=== PATIENT | female | born 1990 | race Caucasian/White ===

== ENCOUNTER 2024-04-14 14:44 | Emergency (ER) | payer OTHER ==
[2024-04-14 14:56] VITALS: RESP 18
[2024-04-14] MEDS: DIPH,PERTUS(ACELL)TETVAC-LF 0.5 ML VIAL IM ONE (16:27)
--- NOTE | 2024-04-14 17:11 | ED ---
Wound/Laceration HPI - General Chief Complaint: Wound/Laceration Stated Complaint: finger lac Time Seen by Provider: 04/14/24 15:45 Source: patient, RN notes reviewed Mode of arrival: ambulatory Limitations: no limitations - History of Present Illness Initial Comments: 33-year-old female at 10 weeks gestation presenting for left finger laceration 3 hours ago. States she was cutting frozen butter with a kitchen knife when she accidentally sliced the tip of her left finger. Denies blood thinners. Last tetanus greater than 5 years. No pain with range of motion. No other injuries. - Related Data Previous Rx's Medication Instructions Recorded Dicyclomine [Bentyl] 20 mg PO QID #24 tablet 10/02/14 Allergies Allergy/AdvReac Type Severity Reaction Status Date / Time No Known Allergies Allergy Verified 04/14/24 14:56 Review of Systems ROS Statement: Those systems with pertinent positive or pertinent negative responses have been documented in the HPI. ROS Other: All systems not noted in ROS Statement are negative. Past Medical History Past Medical History: No Reported History History of Any Multi-Drug Resistant Organisms: None Reported Past Surgical History: Adenoidectomy, Tonsillectomy Past Psychological History: No Psychological Hx Reported Smoking Status: Never smoker Past Alcohol Use History: Occasional Past Drug Use History: None Reported General Exam Limitations: no limitations General appearance: alert, in no apparent distress Head exam: Present: atraumatic, normocephalic, normal inspection Left Forearm Wrist exam: Present: normal inspection, full ROM. Absent: tenderness, swelling Hand Wrist exam: Present: full ROM, laceration (There is a 2 cm avulsion present on distal aspect of left second digit. No active bleeding. No nail involvement. No purulence or drainage). Absent: tenderness, swelling Vascular: Present: normal capillary refill, radial pulse. Absent: vascular compromise Neurological exam: Present: alert, oriented X3 Psychiatric exam: Present: normal affect, normal mood Skin exam: Present: warm, dry, intact, normal color. Absent: rash Course Vital Signs 04/14/24 04/14/24 14:52 17:17 Temperature 97.9 F 98.1 F Pulse Rate 78 76 Respiratory 18 18 Rate Blood Pressure 117/77 120/80 O2 Sat by Pulse 100 100 Oximetry Medical Decision Making - Medical Decision Making Was pt. sent in by a medical professional or institution (Dr., PA, WELLNESS PROGRAM MANAGER, urgent care, hospital, or penitentiary...) When possible be specific @ -No Did you speak to anyone other than the patient for history (EMS, parent, family, police, friend...)? What history was obtained from this source @ -No Did you review nursing and triage notes (agree or disagree)? Why? @ -I reviewed and agree with nursing and triage notes Were old charts reviewed (outside hosp., previous admission, EMS record, old EKG, old radiological studies, urgent care reports/EKG's, penitentiary records)? Report findings @ -No old charts were reviewed Differential Diagnosis (chest pain, altered mental status, abdominal pain women, abdominal pain men, vaginal bleeding, weakness, fever, dyspnea, syncope, headache, dizziness, GI bleed, back pain, seizure, CVA, palpatations, mental health, musculoskeletal)? @ -Differential Musculoskeletal Laceration, avulsion, muscular strain, contusion, ligament sprain, fracture, arthritis, septic arthritis, bursitis, cellulitis, muscle spasm, nerve compression, DVT, arterial occlusion, herpes zoster, electrolyte abnormality, tumor.... This is not meant to be in all inclusive list EKG interpreted by me (3pts min.). @ -None X-rays interpreted by me (1pt min.). @ -None done CT interpreted by me (1pt min.). @ -None done U/S interpreted by me (1pt. min.). @ -None done What testing was considered but not performed or refused? (CT, X-rays, U/S, labs)? Why? @ -None What meds were considered but not given or refused? Why? @ -None Did you discuss the management of the patient with other professionals (professionals i.e. ASHELY Mccarty, WELLNESS PROGRAM MANAGER, lab, RT, psych nurse, social media assistant, eyelet row marker, teacher, parachute/combatant diver officer, social work case manager)? Give summary @ -No Was smoking cessation discussed for >3mins.? @ -No Was critical care preformed (if so, how long)? @ -No Were there social determinants of health that impacted care today? How? (Ho melessness, low income, unemployed, alcoholism, drug addiction, transportation, low edu. Level, literacy, decrease access to med. care, intermediate, rehab)? @ -No Was there de-escalation of care discussed even if they declined (Discuss DNR or withdrawal of care, Hospice)? DNR status @ -No What co-morbidities impacted this encounter? (DM, HTN, Smoking, COPD, CAD, Cancer, CVA, ARF, Chemo, Hep., AIDS, mental health diagnosis, sleep apnea, morbid obesity)? @ -None Was patient admitted / discharged? Hospital course, mention meds given and route, prescriptions, significant lab abnormalities, going to OR and other pertinent info. @ -Discharge. This is a 33-year-old female presenting with left finger laceration 3 hours ago. Patient accidentally sliced the distal aspect of her left second digit while slicing frozen butter with a kitchen knife. Denies blood thinners. On examination, there is a 2 cm avulsion present on distal aspect of left second digit. No active bleeding. Neurovascularly intact. Full range of motion. Sutures not indicated at this time as skin is avulsed. Tetanus was updated. Wound was thoroughly irrigated and Surgifoam was applied. Wound was dressed. Supportive care discussed as well as return precautions, and patient shows understanding and agrees to plan. Antibiotics not given due to clean nature of cut, and wound was thoroughly irrigated. Patient was educated on signs of bacterial infection. Case was discussed with my ED attending Dr. Alves. Patient discharged in stable condition. Undiagnosed new problem with uncertain prognosis? @ -No Drug Therapy requiring intensive monitoring for toxicity (Heparin, Nitro, Insulin, Cardizem)? @ -No Were any procedures done? @ -No Diagnosis/symptom? @ -Left finger avulsion Acute, or Chronic, or Acute on Chronic? @ -Acute Uncomplicated (without systemic symptoms) or Complicated (systemic symptoms)? @ -Uncomplicated Side effects of treatment? @ -No Exacerbation, Progression, or Severe Exacerbation? @ -No Poses a threat to life or bodily function? How? (Chest pain, USA, NH, pneumonia, PE, COPD, DKA, ARF, appy, cholecystitis, CVA, Diverticulitis, Homicidal, Suicidal, threat to staff... and all critical care pts) @ -No Disposition Clinical Impression: Finger laceration Disposition: HOME SELF-CARE Condition: Stable Instructions (If sedation given, give patient instructions): Finger Laceration (ED) Additional Instructions: Make every attempt to keep finger dry until started from falls off on its own. Please return to the Emergency Department if symptoms worsen or any other concerns. Is patient prescribed a controlled substance at d/c from ED?: No Referrals: Bairon Lucia [Primary Care Provider] - 1-2 days Time of Disposition: 17:10
[2024-04-14 17:19] VITALS: BP 120/80; PULSE 76; TEMP 98.1
--- NOTE | 2024-04-15 16:19 | ED ---
Wound/Laceration HPI - General Chief Complaint: Wound/Laceration Stated Complaint: FINGER LAC Time Seen by Provider: 04/14/24 13:25 Source: patient, RN notes reviewed Mode of arrival: ambulatory Limitations: no limitations - History of Present Illness Initial Comments: Quick Note: This is a 33 year old female who presents to the emergency department for a finger laceration. She cut one of the fingers on her left hand when cutting frozen butter. Tetanus vaccine is up to date. - Related Data Previous Rx's Medication Instructions Recorded Dicyclomine [Bentyl] 20 mg PO QID #24 tablet 10/02/14 Allergies Allergy/AdvReac Type Severity Reaction Status Date / Time No Known Allergies Allergy Verified 04/14/24 14:56 Review of Systems ROS Statement: Those systems with pertinent positive or pertinent negative responses have been documented in the HPI. ROS Other: All systems not noted in ROS Statement are negative. Past Medical History Past Medical History: No Reported History History of Any Multi-Drug Resistant Organisms: None Reported Past Surgical History: No Surgical Hx Reported Past Psychological History: No Psychological Hx Reported Smoking Status: Never smoker Past Alcohol Use History: Occasional Past Drug Use History: None Reported General Exam - General Exam Comments Initial Comments: Visual Physical Exam Vital signs reviewed General: Well-appearing, nontoxic, no acute distress. Head: Normocephalic, atraumatic Eyes: PERRLA, EOMI ENT: Airway patent Chest: Nonlabored breathing Skin: No visual rash, normal skin tone Neuro: Alert and oriented 3 Musculoskeletal: No gross abnormalities Limitations: no limitations Course Vital Signs 04/14/24 04/14/24 14:52 17:17 Temperature 97.9 F 98.1 F Pulse Rate 78 76 Respiratory 18 18 Rate Blood Pressure 117/77 120/80 O2 Sat by Pulse 100 100 Oximetry Medical Decision Making - Medical Decision Making I performed the QuickNote portion of this chart. Signed Stefania Jain PA-C. Patient left AMA from the waiting room prior to full evaluation and management of the injury. Disposition Clinical Impression: Finger laceration Disposition: HOME SELF-CARE Condition: Stable Instructions (If sedation given, give patient instructions): Finger Laceration (ED) Additional Instructions: Make every attempt to keep finger dry until started from falls off on its own. Please return to the Emergency Department if symptoms worsen or any other concerns. Is patient prescribed a controlled substance at d/c from ED?: No Referrals: Bairon Lucia [Primary Care Provider] - 1-2 days
== END 2024-04-14 17:19 | disposition home or self-care (01) ==
LOC: EC 14:44
DX: O99.891 Other specified diseases and conditions complicating pregnancy (principal); S61.211A Laceration without foreign body of left index finger without damage to nail, initial encounter; W26.0XXA Contact with knife, initial encounter; Z3A.10 10 weeks gestation of pregnancy; Z23 Encounter for immunization
CPT/HCPCS: 90471; 90715; 99283

== ENCOUNTER 2024-05-10 22:34 | Emergency (ER) | payer OTHER ==
--- NOTE | 2024-05-10 22:54 | ED ---
Abdominal Pain HPI - General Chief Complaint: Abdominal Pain Stated Complaint: Abd Pain (14 Weeks) Time Seen by Provider: 05/10/24 22:42 Source: patient Mode of arrival: ambulatory Limitations: no limitations - History of Present Illness Initial Comments: this is a 33-year-old female, [id number], presenting to the emergency department at 14 weeks gestation with complaint of upper abdominal pain that started approximately 20 minutes prior to arrival. She states that this pain feels like a pressure associated with nausea. She denies fevers, chills, vaginal bleeding, vaginal odor, discharge, bowel habit changes. patient has had an US during this pregancy that has confirmed an intrauterine gestation. - Related Data Previous Rx's Medication Instructions Recorded Dicyclomine [Bentyl] 20 mg PO QID #24 tablet 10/02/14 Allergies Allergy/AdvReac Type Severity Reaction Status Date / Time No Known Allergies Allergy Verified 05/10/24 22:41 Review of Systems ROS Statement: Those systems with pertinent positive or pertinent negative responses have been documented in the HPI. ROS Other: All systems not noted in ROS Statement are negative. Past Medical History Past Medical History: No Reported History History of Any Multi-Drug Resistant Organisms: None Reported Past Surgical History: Adenoidectomy, Tonsillectomy Past Psychological History: No Psychological Hx Reported Smoking Status: Vaper Past Alcohol Use History: Occasional Past Drug Use History: None Reported General Exam Limitations: no limitations General appearance: alert, in no apparent distress ENT exam: Present: normal exam, mucous membranes moist Neck exam: Present: normal inspection. Absent: tenderness, meningismus, lymphadenopathy Respiratory exam: Present: normal lung sounds bilaterally. Absent: respiratory distress, wheezes, rales, rhonchi, stridor Cardiovascular Exam: Present: regular rate, normal rhythm, normal heart sounds. Absent: systolic murmur, diastolic murmur, rubs, gallop, clicks GI/Abdominal exam: Present: soft, normal bowel sounds. Absent: distended, tenderness, guarding, rebound, rigid Extremities exam: Present: normal inspection, full ROM, normal capillary refill. Absent: tenderness, pedal edema, joint swelling, calf tenderness Back exam: Present: normal inspection Skin exam: Present: warm, dry, intact, normal color. Absent: rash Course Vital Signs 05/10/24 05/11/24 22:37 01:35 Temperature 97.7 F 98.0 F Pulse Rate 118 H 75 Respiratory 18 17 Rate Blood Pressure 118/76 135/75 O2 Sat by Pulse 100 98 Oximetry Medical Decision Making - Medical Decision Making Was pt. sent in by a medical professional or institution (ASHELY Mccarty, WAITER/WAITRESS FORMAL, urgent care, hospital, or half-way...) When possible be specific @ -No Did you speak to anyone other than the patient for history (EMS, parent, family, police, friend...)? What history was obtained from this source @ -No Did you review nursing and triage notes (agree or disagree)? Why? @ -I reviewed and agree with nursing and triage notes Were old charts reviewed (outside hosp., previous admission, EMS record, old EKG, old radiological studies, urgent care reports/EKG's, half-way records)? Report findings @ -No old charts were reviewed Differential Diagnosis (chest pain, altered mental status, abdominal pain women, abdominal pain men, vaginal bleeding, weakness, fever, dyspnea, syncope, headache, dizziness, GI bleed, back pain, seizure, CVA, palpatations, mental health, musculoskeletal)? @ -Differential Abdominal Pain Women: Appendicitis, Cholecystitis, diverticulosis, ischemic bowel, pancreatitis, hepatitis, UTI, gastroenteritis, AAA, incarcerated hernia, bowel obstruction, constipation, inflammatory bowel, hepatitis, peptic ulcer disease, splenic infarction, perforated viscus, vulvitis, ovarian torsion, PID, kidney stone, placenta abruption, this is not meant to be an all-inclusive list EKG interpreted by me (3pts min.). @ -none X-rays interpreted by me (1pt min.). @ -None done CT interpreted by me (1pt min.). @ -None done U/S interpreted by me (1pt. min.). @ -OB ultrasound reveals a single live intrauterine gestation with a heart rate of 165 and an estimated age of 14 weeks 1 day What testing was considered but not performed or refused? (CT, X-rays, U/S, labs)? Why? @ -None What meds were considered but not given or refused? Why? @ -None Did you discuss the management of the patient with other professionals (p ryleefessionalmiracle i.e. ASHELY Mccarty, WAITER/WAITRESS FORMAL, lab, RT, psych nurse, social services specialist, certified prosthetist, teacher, corporate security officer, classification case manager)? Give summary @ -No Was smoking cessation discussed for >3mins.? @ -No Was critical care preformed (if so, how long)? @ -No Were there social determinants of health that impacted care today? How? (Homelessness, low income, unemployed, alcoholism, drug addiction, transportation, low edu. Level, literacy, decrease access to med. care, care home, rehab)? @ -No Was there de-escalation of care discussed even if they declined (Discuss DNR or withdrawal of care, Hospice)? DNR status @ -No What co-morbidities impacted this encounter? (DM, HTN, Smoking, COPD, CAD, Cancer, CVA, ARF, Chemo, Hep., AIDS, mental health diagnosis, sleep apnea, morbid obesity)? @ -None Was patient admitted / discharged? Hospital course, mention meds given and route, prescriptions, significant lab abnormalities, going to OR and other pertinent info. @ -Discharge. 33-year-old female 13 weeks gestation with abdominal pain. On evaluation patient noted to be in no signs acute distress. Vitals are stable. Patient states that when she is laying down in the emergency department her abdominal pain is completely resolved prior to medication ministration. This time she would like to defer l testing as she states she is feeling markedly better. Urinalysis no signs of infection. Ultrasound reveals a intrauterine with heart rate of 165 estimated age of 14 weeks. On reevaluation, patient states that abdominal pain has not returned and she is feeling pain. Patient is stable for discharge and recommend she continue to follow outpatient with her OB for further evaluation. Discussed with Dr. Escobar Undiagnosed new problem with uncertain prognosis? @ -No Drug Therapy requiring intensive monitoring for toxicity (Heparin, Nitro, Insulin, Cardizem)? @ -No Were any procedures done? @ -No Diagnosis/symptom? @ -abdominal pain in Acute, or Chronic, or Acute on Chronic? @ -acute Uncomplicated (without systemic symptoms) or Complicated (systemic symptoms)? @ -uncomplicated Side effects of treatment? @ -No Exacerbation, Progression, or Severe Exacerbation? @ -No Poses a threat to life or bodily function? How? (Chest pain, USA, CT, pneumonia, PE, COPD, DKA, ARF, appy, cholecystitis, CVA, Diverticulitis, Homicidal, Suicidal, threat to staff... and all critical care pts) @ -No - Lab Data Lab Results 11/30/24 Range/Units 23:06 Urine Color Light Yellow Urine Appearance Clear (Clear) Urine pH 6.0 (5.0-8.0) Ur Specific [place] 1.027 (1.001-1.035) Urine Protein Trace H (Negative) Urine Glucose (UA) Negative (Negative) Urine Ketones 1+ H (Negative) Urine Blood Negative (Negative) Urine Nitrite Negative (Negative) Urine Bilirubin Negative (Negative) Urine Urobilinogen <2.0 (<2.0) mg/dL Ur Leukocyte Esterase Negative (Negative) Disposition Clinical Impression: Abdominal pain during Disposition: HOME SELF-CARE Condition: Good Instructions (If sedation given, give patient instructions): Abdominal Pain in (ED) Additional Instructions: Please return to the Emergency Department if symptoms worsen or any other concerns. Continue to follow-up as scheduled with outpatient OB for further evaluation. Is patient prescribed a controlled substance at d/c from ED?: No Referrals: Bairon Lucia [Primary Care Provider] - 1-2 days Time of Disposition: 01:27
[2024-05-10] MEDS: ACETAMINOPHEN TAB 500 MG TAB PO STA (23:21)
[2024-05-10 23:32] LABS: Appearance,Urine Clear (Clear); Bilirubin,Urine Negative (Negative); Blood,Urine Negative (Negative); Color,Urine Light Yellow; Glucose,Urine (UA) Negative (Negative); Ketones,Urine 1+ (Negative); Leukocyte Esterase,Urine Negative (Negative); Nitrite,Urine Negative (Negative); Protein,Urine Trace (Negative); Specific Gravity,Urine 1.027 (1.001-1.035); Urobilinogen,Urine <2.0 mg/dL (<2.0)
--- NOTE | 2024-05-11 01:09 | US ---
EXAM: US , Limited CLINICAL HISTORY: ITS.REASON US Reason: upper ab. pain/cramping. LMP: 02/01/2024. Gestational age: 14 weeks 1 day. TECHNIQUE: Real-time limited ultrasound of the maternal uterus with image documentation. COMPARISON: None. FINDINGS: number: One heart rate: 165 bpm. A central location: Anterior. No evidence of abruption. Cervical length: 3.2 cm. . No ultrasound estimated gestational age was performed on today's the study. IMPRESSION: Single live intrauterine gestation with a heart rate of 165 bpm. Clinically estimated gestational age: 14 weeks 1 day and MISTI: 11/07/2024. .
[2024-05-11 01:37] VITALS: BP 135/75; PULSE 75; RESP 17; TEMP 98
== END 2024-05-11 01:37 | disposition home or self-care (01) ==
LOC: EC 22:34
DX: O26.892 Other specified pregnancy related conditions, second trimester (principal); R10.10 Upper abdominal pain, unspecified; O99.332 Smoking (tobacco) complicating pregnancy, second trimester; F17.290 Nicotine dependence, other tobacco product, uncomplicated; Z3A.14 14 weeks gestation of pregnancy
CPT/HCPCS: 76815; 81003; 99284

== ENCOUNTER 2024-10-22 12:16 | Outpatient (CLI) | payer OTHER ==
[2024-10-22 13:41] LABS: Appearance,Urine Cloudy (Clear); Bacteria,Urine Moderate /hpf; Bilirubin,Urine Negative (Negative); Blood,Urine Trace (Negative); Color,Urine Colorless; Glucose,Urine (UA) Negative (Negative); Hyaline Casts,Urine 6 /lpf (0-2); Ketones,Urine Negative (Negative); Leukocyte Esterase,Urine Moderate (Negative); Mucus,Urine Rare /hpf; Nitrite,Urine Negative (Negative); PH, Urine 6.5 (5.0-8.0); Protein,Urine 1+ (Negative); RBC,Urine 2 /hpf (0-5); Specific Gravity,Urine 1.009 (1.001-1.035); Squamous Epithelial Cell,Urine 8 /hpf (0-4); Urobilinogen,Urine <2.0 mg/dL (<2.0); WBC,Urine 4 /hpf (0-5)
[2024-10-22 13:50] LABS: ALT 13 U/L (4-34); AST 22 U/L (14-36); African American GFR (CKD) >90 (>60 ml/min/1.73 sqM); Albumin 3.1 g/dL (3.5-5.0); Alkaline Phosphatase 218 U/L (38-126); Anion Gap 5 mmol/L; Blood Urea Nitrogen 7 mg/dL (7-17); Calcium 9.3 mg/dL (8.4-10.2); Carbon Dioxide 21 mmol/L (22-30); Chloride 105 mmol/L (98-107); Glucose 67 mg/dL (74-99); Non-African American GFR(CKD) >90 (>60 ml/min/1.73 sqM); Potassium 4.1 mmol/L (3.5-5.1); Sodium 131 mmol/L (137-145); Total Bilirubin 0.3 mg/dL (0.2-1.3); Total Protein 5.8 g/dL (6.3-8.2); Uric Acid 5.2 mg/dL (3.7-7.4)
[2024-10-22 13:51] LABS: Creatinine,Urine Random 63.8 mg/dL; Protein/Creatinine Ratio,Urine 3.119
[2024-10-22 13:57] LABS: Basophils # (A) 0.05 10*3/uL (0.00-0.10); Basophils % (A) 0.7 %; Eosinophils # (A) 0.02 10*3/uL (0.04-0.35); Eosinophils % (A) 0.3 %; HCT 35.8 % (37.2-46.3); HGB 12.2 g/dL (12.0-15.0); Lymphocytes # (A) 1.37 10*3/uL (0.90-5.00); Lymphocytes % (A) 19.8 %; MCH 29.5 pg (27.0-32.0); MCHC 34.1 g/dL (32.0-37.0); MCV 86.7 fL (80.0-97.0); Mean Platelet Volume 10.2 fL (9.5-12.2); Monocytes # (A) 0.56 10*3/uL (0.20-1.00); Monocytes % (A) 8.1 %; Neutrophils # (A) 4.89 10*3/uL (1.80-7.70); Neutrophils % (A) 70.5 %; Platelet Count 260 10*3/uL (140-440); RBC 4.13 10*6/uL (4.10-5.20); RDW 12.9 % (11.5-14.5); WBC 6.93 10*3/uL (4.50-10.00)
[2024-10-22 14:21] LABS: INR 0.9 (<1.2); Partial Thromboplastin Time 22.3 sec (22.0-30.0)
[2024-10-22 16:48] VITALS: BP 141/83; PULSE 67; RESP 16; TEMP 98.2
--- NOTE | 2024-10-25 11:28 | P.MSEPDOC ---
Presenting Problems - Arrival Data Date of Arrival on Unit: 10/22/24 Time of Arrival on Unit: 12:16 Mode of Transport: Ambulatory - Complaint OB-Reason for Admission/Chief Complaint: PIH, Elevated Blood Pressure Comment: Pt presents to triage with orders from office of elevated bp in office Medical History - Information : 2 Para: 1 Term: 1 : 0 Abortions: Spontaneous or Elective: 0 Number of Living Children: 1 - Gestational Age Gestational Age by MISTI (wks/days): 37 Weeks and 5 Days Review of Systems - Review of Systems Constitutional: No problems Breast: No problems ENT: No problems Cardiovascular: No problems Respiratory: No problems Gastrointestinal: No problems Genitourinary: No problems Musculoskeletal: No problems Neurological: No problems Skin: No problems Vital Signs - Temperature Temperature: 98.2 F Temperature Source: Oral - Pulse Right Pulse Rate: 67 Pulse Assessment Method: Automatic Cuff - Respirations Respiratory Rate: 16 Oxygen Delivery Method: Room Air O2 Sat by Pulse Oximetry: 98 - Blood Pressure Right Arm Blood Pressure: 141/83 Blood Pressure Mean: 102 Blood Pressure Source: Automatic Cuff Medical Screen Scoring - Uterine Contractions Frequency From (mins): 2 Frequency To (mins): 8 Duration From (seconds): 40 Duration To (seconds): 60 Intensity: Mild Resting: Soft to palpation - Assessment - Baby A Baseline FHR: 135 Heart Rate - NICHD Category: Category I (Normal) NST: Reactive Physician Notification - Physician Notified Physician Notified Date: 10/22/24 Physician Notified Time: 15:10 Physician: Oswaldo Rene New Order Received: Yes (Pts labs reviewed with Dr Rene and discharge order received) - Notification Comment Comment: Preeclampsia labs all within expected limits excluidng PCR ration which is contaminated and not accurate. Discussed pts complaint of uncontrolled depression along with her reason for visit of elevated BP. Plans made for follow up with pt re depression at next visit 10/29. Pt educated re preeclampsia symptoms and also she may return to triage with any other concerns including worsening depression. Maternal Triage Index - Maternal Triage Index Presenting for scheduled procedure w/no complaint: No - Stat/Priority 1 Stat Priority 1: No - Urgent/Priority 2 Urgent Priority 2: Yes Provider Notified: Oswaldo Rene Provider Notified Time: 12:30 Criteria Met for Priority 2: Pt sent from office with orders from Dr Osorio. He is aware she is here Disposition - Disposition OB Disposition: Discharge to home Discharge Date: 10/22/24 Discharge Time: 15:30 I agree with the RN Medical Screening Exam: Yes Case reviewed; plan agreed upon as documented in EMR&OBIX.: Yes Diagnosis: RELATED CONDITIONS, UNSPECIFIED, THIRD TRIMESTER
== END 2024-10-22 15:30 | disposition home or self-care (01) ==
LOC: FBPOP 12:16
PROVIDERS: ATTEND Obstetrics & Gynecology
DX: O13.9 Gestational [pregnancy-induced] hypertension without significant proteinuria, unspecified trimester (principal); O99.330 Smoking (tobacco) complicating pregnancy, unspecified trimester; F17.200 Nicotine dependence, unspecified, uncomplicated; Z3A.00 Weeks of gestation of pregnancy not specified
CPT/HCPCS: 59025; 80053; 81001; 82570; 83615; 84156; 84550; 85025; 85384; 85610; 85730

== ENCOUNTER 2024-10-28 06:49 | Inpatient (IN) | payer OTHER ==
[2024-10-28 08:36] LABS: Appearance,Urine Cloudy (Clear); Bacteria,Urine Rare /hpf; Bilirubin,Urine Negative (Negative); Blood,Urine Large (Negative); Color,Urine Light Red; Glucose,Urine (UA) Negative (Negative); Ketones,Urine Negative (Negative); Leukocyte Esterase,Urine Trace (Negative); Mucus,Urine Few /hpf; Nitrite,Urine Negative (Negative); Protein,Urine 1+ (Negative); RBC,Urine >182 /hpf (0-5); Squamous Epithelial Cell,Urine 12 /hpf (0-4); Urobilinogen,Urine <2.0 mg/dL (<2.0); WBC,Urine 10 /hpf (0-5)
[2024-10-28] MEDS ORDERED: METHYLERGONOVINE 0.2 MG/ML 1 ML AMP IM PRN (09:24)
[2024-10-28] MEDS ORDERED: CARBOPROST TROMETHAMINE 250 MCG/ML 1 ML AMP IM PRN (09:24)
[2024-10-28] MEDS ORDERED: miSOPROStoL 200 MCG TAB RECTAL PRN (09:24)
[2024-10-28] MEDS ORDERED: TRANEXAMIC 1,000 MG/100ML-NACL 1,000 MG in EMPTY BAG 1 BAG IV PRN (09:24)
[2024-10-28] MEDS ORDERED: miSOPROStoL 200 MCG TAB PO PRN (09:24)
[2024-10-28] MEDS ORDERED: LIDOCAINE 0.5% (PF) 5 MG/ML (50 ML SDV) SQ PRN (09:24)
[2024-10-28] MEDS ORDERED: TERBUTALINE 1 MG/ML VIAL SQ PRN (09:24)
[2024-10-28] MEDS ORDERED: OXYTOCIN 10 UNIT/ML 1 ML VIAL IM PRN (09:24)
[2024-10-28] MEDS: LACTATED RINGERS 1,000 ML IV SCH (10:49)
[2024-10-28] MEDS: PENICILLIN G POTASSIUM 5,000,000 UNIT in SODIUM CHLORIDE 0.9% 100 ML IVPB STA (10:49)
[2024-10-28] MEDS: LABETALOL 5 MG/ML VIAL MDV IVP STA (11:11)
[2024-10-28 11:25] LABS: Basophils # (A) 0.05 10*3/uL (0.00-0.10); Basophils % (A) 0.5 %; Eosinophils # (A) 0.05 10*3/uL (0.04-0.35); Eosinophils % (A) 0.5 %; HCT 38.8 % (37.2-46.3); HGB 13.1 g/dL (12.0-15.0); Lymphocytes # (A) 1.54 10*3/uL (0.90-5.00); Lymphocytes % (A) 16.5 %; MCHC 33.8 g/dL (32.0-37.0); Mean Platelet Volume 10.1 fL (9.5-12.2); Monocytes # (A) 0.68 10*3/uL (0.20-1.00); Monocytes % (A) 7.3 %; Neutrophils # (A) 6.98 10*3/uL (1.80-7.70); Neutrophils % (A) 74.7 %; Platelet Count 257 10*3/uL (140-440); RBC 4.51 10*6/uL (4.10-5.20); RDW 13.2 % (11.5-14.5); WBC 9.35 10*3/uL (4.50-10.00)
[2024-10-28 11:39] LABS: Creatinine,Urine Random 192.3 mg/dL; Protein/Creatinine Ratio,Urine 0.634
[2024-10-28 11:45] LABS: ALT 13 U/L (4-34); AST 22 U/L (14-36); African American GFR (CKD) >90 (>60 ml/min/1.73 sqM); Blood Urea Nitrogen 7 mg/dL (7-17); LDH 170 U/L (120-246); Magnesium 1.7 mg/dL (1.6-2.3); Non-African American GFR(CKD) >90 (>60 ml/min/1.73 sqM); Uric Acid 5.3 mg/dL (3.7-7.4)
[2024-10-28 11:46] LABS: INR 0.8 (<1.2); Partial Thromboplastin Time 22.3 sec (22.0-30.0); Prothrombin Time 9.6 sec (10.0-12.5)
[2024-10-28] MEDS ORDERED: BUTORPHANOL 1 MG/ML 1 ML VIAL IV PRN (12:01)
--- NOTE | 2024-10-28 13:04 | P.HPOB ---
History of Present Illness H&P Date: 10/28/24 Chief Complaint: 38+ weeks, -induced hypertension, vaginal bleeding The patient is a 34-year-old 4 para 1-0-2-1 admitted at 38+ weeks as established by last menstrual period and confirmed by 15-week ultrasound. She is admitted to triage with some cramping and contractions as well as vaginal bleeding beginning this morning and a finding at home of higher blood pressures for which she has been followed over the last week or 2. On labor delivery, blood pressures were somewhat labile to start with in the range of 130s to her 85-95. heart tones were initially reassuring with a category 1 though occasionally show minimal variability. 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 Her was otherwise essentially uncomplicated though she has had a fairly significant amount of depression and anxiety in the latter stages. Group B strep status is positive. Elevated blood pressures vaginal bleeding with concern for possible marginal placental abruption, the patient is admitted for induction of labor. Obstetrical history: 4 para 1-0-2-1 with 1 term vaginal delivery without complications though she was a teenager current statistics are listed in history of present illness. EDC of 11/07/2024 was established by last menstrual period confirmed by 15-week ultrasound. Laboratory workup demonstrates a blood type of A+ with a negative antibody screen. Rubella status was apparently not reported and is pending with this morning's labs. Remainder of the laboratory workup was within normal limits. 1 hour Glucola was normal and group B strep status is reportedly positive. Gynecologic history: Unremarkable with no history of any infections to include STDs. Review of Systems Review of systems is confined to history of present illness. Past Medical History Past Medical History: No Reported History History of Any Multi-Drug Resistant Organisms: None Reported Past Surgical History: Adenoidectomy, Tonsillectomy Past Anesthesia/Blood Transfusion Reactions: No Reported Reaction Past Psychological History: Depression Smoking Status: Vaper Past Alcohol Use History: Occasional Past Drug Use History: None Reported - Past Family History Father Family Medical History: Diabetes Mellitus, Hypertension Medications and Allergies Home Medications Medication Instructions Recorded Confirmed Type Sertraline HCl [Zoloft] 50 mg PO DAILY 10/22/24 10/28/24 History Allergies Allergy/AdvReac Type Severity Reaction Status Date / Time No Known Allergies Allergy Verified 10/28/24 06:53 Exam Vital Signs Temp Pulse Resp BP Pulse Ox 10/28/24 09:16 97.9 F 72 18 164/81 97 10/28/24 09:05 97.3 F L 78 18 143/87 97 Intake and Output 10/27/24 10/28/24 10/28/24 22:59 06:59 14:59 Other: Weight 95.254 kg 95.254 kg In general, this is a well-developed, well-nourished white female in no acute distress though she appears somewhat uncomfortable. Her heart has a regular rhythm and rate without murmur. Her lungs clear to auscultation bilaterally. Her abdomen is gravid, nondistended, has normal active bowel sounds, is soft, nontender, and without any palpable masses aside from the uterine fundus. Her extremities are without any cyanosis, clubbing, or edema and are nontender to p alpation bilaterally. Digital cervical examination demonstrates her cervix to be 3 cm dilated, 90% effaced, the vertex and presentation at -2-3 station. Artificial rupture of membranes is carried out demonstrating light meconium stained fluid. Results Result Diagrams: 10/28/24 11:09 10/28/24 11:09 Abnormal Lab Results - Last 24 Hours (Table) 10/28/24 10/28/24 10/28/24 Range/Units 07:52 11:09 11:09 Immature Gran # 0.05 H (0.00-0.04) 10*3/uL PT 9.6 L (10.0-12.5) sec Urine Appearance Cloudy H (Clear) Urine Protein 1+ H (Negative) Urine Blood Large H (Negative) Ur Leukocyte Esterase Trace H (Negative) Urine RBC >182 H (0-5) /hpf Urine WBC 10 H (0-5) /hpf Ur Squamous Epith Cells 12 H (0-4) /hpf Urine Bacteria Rare H (None) /hpf Urine Mucus Few H (None) /hpf Assessment and Plan (1) Vaginal bleeding in Current Visit: Yes Status: Acute Code(s): O46.90 - ANTEPARTUM HEMORRHAGE, UNSPECIFIED, UNSPECIFIED TRIMESTER SNOMED Code(s): 60338849747686088 (2) induced hypertension Current Visit: Yes Status: Acute Code(s): O13.9 - GESTATIONAL HTN W/O SIGNIFICANT PROTEINURIA, UNSP TRIMESTER SNOMED Code(s): 55156538 (3) Term Current Visit: Yes Status: Acute Code(s): Z34.90 - ENCNTR FOR SUPRVSN OF NORMAL , UNSP, UNSP TRIMESTER SNOMED Code(s): 42796454 Plan: The patient has been admitted for active management of labor. She will have close maternal and surveillance and expectant management will be practiced. Should she make no progress over the next hour or 2 after having had artificial rupture of membranes, Pitocin augmentation will be added. She is a good candidate for either IV or epidural analgesia, which ever she may choose.
[2024-10-28] MEDS ORDERED: fentaNYL (PF) 50 MCG/ML 5 ML AMP ONE (13:50)
[2024-10-28] MEDS ORDERED: SODIUM CHLORIDE 0.9% 250 ML BAG ONE (13:50)
[2024-10-28] MEDS ORDERED: ROPIVACAINE 5 MG/ML 30 ML VIAL ONE (13:50)
[2024-10-28] MEDS: PENICILLIN G POTASSIUM 2,500,000 UNIT in SODIUM CHLORIDE 0.9% 100 ML IVPB SCH (15:07)
[2024-10-28 15:52] LABS: Hepatitis B Surface Antigen Nonreactive (Nonreactive)
[2024-10-28 16:41] LABS: HIV 2 AB Non-Reactive (Non-Reactive); HIV AB P24 Non-Reactive (Non-Reactive); HIV P24 AG Non-Reactive (Non-Reactive)
[2024-10-28] MEDS: OXYTOCIN 30 UNITS/500 ML NS 30 UNIT in SALINE 1 500ML.BAG IV SCH (17:01)
[2024-10-28] MEDS ORDERED: OXYTOCIN 30 UNITS/500 ML NS 30 UNIT in SALINE 1 500ML.BAG IV SCH (17:15)
[2024-10-28] MEDS ORDERED: SIMETHICONE 80 MG CHEWABLE PO PRN (17:15)
[2024-10-28] MEDS ORDERED: HYDROCORTISONE 2.5% RECTAL CREAM 30 GM TUBE RECTAL PRN (17:15)
[2024-10-28] MEDS ORDERED: diphenhydrAMINE 50 MG/ML 1 ML VIAL IVP PRN ×2 (17:15)
[2024-10-28] MEDS ORDERED: LANOLIN CREAM 1 GM TUBE TOPICAL PRN (17:15)
[2024-10-28] MEDS ORDERED: BENZOCAINE/MENTHOL SPRAY 1 GM/SPRAY AEROSOL TOPICAL PRN (17:15)
[2024-10-28] MEDS ORDERED: diphenhydrAMINE 25 MG CAP PO PRN (17:15)
[2024-10-28] MEDS ORDERED: diphenhydrAMINE 50 MG CAP PO PRN (17:15)
[2024-10-28] MEDS ORDERED: ZOLPIDEM 5 MG TAB PO PRN (17:15)
--- NOTE | 2024-10-28 17:21 | P.PROBDLV ---
Vaginal Delivery Note - . Vaginal Delivery Note: Patient is a 34-year-old 4/7 weeks by good dating parameters. She is admitted with elevated blood pressures at home and some vaginal bleeding. On labor and delivery, she had relatively decreased variability and continued to have some vaginal bleeding as well as mild to moderately elevated blood pressures which did require intervention on at least 1 occasion with IV labetalol. As result of her gestational age and symptoms, the decision was made to proceed with induction of labor. She was taken to room where she underwent artificial rupture of membranes for lightly meconium stained fluid. She progressed on her own without Pitocin augmentation into the active phase and had an epidural placed for analgesia. She then progressed fairly quickly through the active over the course of approximately 2-3 contractions to a normal spontaneous vaginal delivery of a viable 5 pound 14 ounce baby girl with Apgars of 9 at 1 minute and 9 at 5 minutes delivered in the left occiput anterior position. The placenta was delivered spontaneously, intact, grossly normal with a grossly normal three-vessel cord inserted approximately 5 cm from the margin of the placental disc. There were no lacerations of the perineum, vagina, or cervix. All sponge, instrument, and needle counts were correct. There were no complications. Estimated blood loss for the case was approximately 100 mL. Both mother and are resting comfortably in recovery.
[2024-10-28] MEDS: ACETAMINOPHEN TAB 500 MG TAB PO PRN (19:48)
[2024-10-29] MEDS: SENNOSIDES-DOCUSATE SODIUM 1 EACH TAB PO SCH (01:08)
[2024-10-29] MEDS: IBUPROFEN 800 MG TAB PO PRN (04:53)
[2024-10-29 06:25] LABS: Basophils # (A) 0.05 10*3/uL (0.00-0.10); Basophils % (A) 0.4 %; Eosinophils # (A) 0.08 10*3/uL (0.04-0.35); Eosinophils % (A) 0.7 %; HCT 32.6 % (37.2-46.3); HGB 11.2 g/dL (12.0-15.0); Lymphocytes % (A) 21.6 %; MCH 29.9 pg (27.0-32.0); MCHC 34.4 g/dL (32.0-37.0); MCV 86.9 fL (80.0-97.0); Mean Platelet Volume 10.3 fL (9.5-12.2); Monocytes # (A) 1.38 10*3/uL (0.20-1.00); Monocytes % (A) 11.9 %; Neutrophils # (A) 7.53 10*3/uL (1.80-7.70); Platelet Count 222 10*3/uL (140-440); RBC 3.75 10*6/uL (4.10-5.20); RDW 13.2 % (11.5-14.5); WBC 11.59 10*3/uL (4.50-10.00)
[2024-10-29] MEDS: SERTRALINE 50 MG TAB PO SCH (09:24)
--- NOTE | 2024-10-29 09:27 | P.DS ---
Providers Date of admission: 10/28/24 09:10 Expected date of discharge: 10/29/24 Attending physician: Oswaldo Rene Primary care physician: Stated None - Discharge Diagnosis(es) (1) Vaginal bleeding in Current Visit: Yes Status: Acute (2) induced hypertension Current Visit: Yes Status: Acute (3) Term Current Visit: Yes Status: Acute (4) Normal spontaneous vaginal delivery Current Visit: Yes Status: Acute Hospital Course: Patient is a 34-year-old 4 para 1-0-2-1 admitted at 38+ weeks by good dating parameters. She presents to triage with cramping and contractions as well as some vaginal bleeding beginning early in the morning. She also noted some increased blood pressures for which she has been monitored over the last week or so. On labor delivery, her blood pressures were somewhat labile and she continued to have some vaginal bleeding. heart tones were category 1 but generally with significantly decreased variability. Given her bleeding, blood pressures, and heart tones, decision was made to proceed with augmentation of labor. She was admitted and underwent artificial rupture of membranes for lightly meconium stained fluid. She progressed on her own and had an epidural catheter placed for analgesia. She ultimately progressed to complete and then pushed to a normal spontaneous vaginal delivery of a viable 5 pound 14 ounce baby girl with Apgars of 9 at 1 minute and 9 at 5 minutes. Her course was unremarkable with vital signs remaining stable and her temperature was afebrile throughout. She was deemed stable for discharge on day #1 and was discharged home to follow-up in the office in 6 weeks time routinely. Discharge instructions included calling for any significantly increased bleeding or foul-smelling lochia, significantly increased fever abdominal pain, perineal complaints, breast complaints, Cerner. She was additionally instructed to have nothing in the vagina for at least 6 weeks time to include intercourse. She understood her instructions and agrees to follow-up as noted above. Discharge medications included [id number] analgesic pain medications. She already has a prescription for Zoloft 75 mg daily. Maternal blood type is A+ and rubella status was pending at the time of the dictation of the history and physical and has now been documented as immune. Procedures: #1. Artificial rupture of membranes #2. Epidural analgesia #3. Normal spontaneous vaginal delivery Patient Condition at Discharge: Stable Plan - Discharge Summary New Discharge Prescriptions: No Action Sertraline HCl [Zoloft] 50 mg PO DAILY Discharge Medication List Sertraline HCl [Zoloft] 50 mg PO DAILY 10/22/24 [History] Follow up Appointment(s)/Referral(s): Oswaldo Rene MD [STAFF PHYSICIAN] - 6 Weeks Discharge Disposition: HOME SELF-CARE
[2024-10-29] MEDS: SERTRALINE 25 MG TAB PO SCH (10:57)
[2024-10-29 12:07] VITALS: PULSE 81; RESP 16; TEMP 98
[2024-10-29 17:41] VITALS: BP 150/94
[2024-10-30] MEDS ORDERED: SERTRALINE 25 MG TAB PO SCH (09:00)
== END 2024-10-29 18:15 | disposition home or self-care (01) | DRG 560 ==
LOC: FBPOP 06:49 → 4FBP 09:10
PROVIDERS: ADMIT Obstetrics & Gynecology; ATTEND Obstetrics & Gynecology
PROC: 10E0XZZ Delivery of Products of Conception, External Approach (ICD-10-PCS; principal; 2024-10-28)
PROC: 10907ZC Drainage of Amniotic Fluid, Therapeutic from Products of Conception, Via Natural or Artificial Opening (ICD-10-PCS; principal; 2024-10-28)
PROC: 3E033VJ Introduction of Other Hormone into Peripheral Vein, Percutaneous Approach (ICD-10-PCS; principal; 2024-10-28)
DX: O13.4 Gestational [pregnancy-induced] hypertension without significant proteinuria, complicating childbirth (principal); O46.90 Antepartum hemorrhage, unspecified, unspecified trimester; F41.9 Anxiety disorder, unspecified; O77.0 Labor and delivery complicated by meconium in amniotic fluid; O99.344 Other mental disorders complicating childbirth; O99.824 Streptococcus B carrier state complicating childbirth; F32.A Depression, unspecified; Z79.899 Other long term (current) drug therapy; Z28.310 Unvaccinated for COVID-19; Z37.0 Single live birth
CPT/HCPCS: 59025; 81001; 82565; 82570; 83615; 83735; 84156; 84450; 84460; 84520; 84550; 85025; 85384; 85610; 85730; 86762; 86780; 86850; 86900; 86901; 87340; 87390; 99213